=== PATIENT | male | born 1960 | race Two or more races ===

== ENCOUNTER 2023-02-21 20:55 | Emergency (ER) | payer MEDICAID ==
[~2023-02-21] VITALS: Ht 177.8 cm; Wt 99.8 kg
--- NOTE | 2023-02-21 20:57 | NUR ---
JAMES COLON TO BED #11
[2023-02-21 21:00] VITALS: BP 125/89
--- NOTE | 2023-02-21 21:00 | NUR ---
BIBA FROM HOME WITH [facility] A/P. DENIES CONSTIPATION. [facility] : DENIES
[2023-02-21] MEDS ORDERED: ALUMINUM HYD/MAG/SIMETHICONE 30 ML UDC PO ONE (21:05)
--- NOTE | 2023-02-21 22:10 | NUR ---
RETURNED FROM RADIOLOGY
--- NOTE | 2023-02-21 22:10 | NUR ---
TO RADIOLOGY VIA W/C
[2023-02-21 22:38] LABS: BASOPHILS # (AUTO) 0.1 K/uL (0.00-0.22); BASOPHILS % (AUTO) 1.2 % (0.0-2.0); EOSINOPHILS # (AUTO) 0.7 K/uL (0-0.4); EOSINOPHILS % (AUTO) 12.4 % (0.0-4.0); HEMATOCRIT 44.7 % (36-52); HEMOGLOBIN 15.1 g/dL (12.0-18.0); LYMPHOCYTES # (AUTO) 1.7 K/uL (2.0-11.5); LYMPHOCYTES % (AUTO) 29.1 % (20.5-51.1); MEAN CORPUSCULAR HEMOGLOBIN 32 pg (27-31); MEAN CORPUSCULAR HGB CONC 34 g/dL (33-37); MEAN CORPUSCULAR VOLUME 93.7 fL (80-94); MONOCYTES # (AUTO) 0.3 K/uL (0.8-1.0); MONOCYTES % (AUTO) 5.5 % (1.7-9.3); NEUTROPHILS % (AUTO) 51.8 % (42.2-75.2); PLATELET COUNT (AUTO) 286 K/uL (140-450); RED BLOOD CELL COUNT(AUTO) 4.77 MIL/uL (4.20-6.10); RED CELL DISTRIBUTION WIDTH 13.1 % (11.6-13.7); WHITE BLOOD COUNT (AUTO) 5.8 K/uL (4.8-10.8)
[2023-02-21 23:07] LABS: ALBUMIN 3.8 g/dL (3.4-5.0); ANION GAP 17.2 (8-16); CARBON DIOXIDE 26.1 mmol/L (21-32); CREATININE 1.1 mg/dL (0.6-1.3); POTASSIUM 3.3 mmol/L (3.5-5.1); TOTAL BILIRUBIN 0.2 mg/dL (0.0-1.0)
[2023-02-21] MEDS ORDERED: FAMO-92 PO (23:16)
== END 2023-02-21 23:23 | disposition home or self-care (01) ==
LOC: MED 20:55
DX: K29.70 Gastritis, unspecified, without bleeding (principal); F10.10 Alcohol abuse, uncomplicated; Y90.9 Presence of alcohol in blood, level not specified; Z79.899 Other long term (current) drug therapy
CPT/HCPCS: 36415; 80053; 83690; 85025; 99284